=== PATIENT | female | born 1965 | race Caucasian/White ===

== ENCOUNTER 2020-09-27 13:18 | Day surgery (SDC) | payer OTHER ==
[2020-09-27] MEDS ORDERED: Sodium Chloride 0.9(Preservative Free) 10 ML IJ ONE (13:19)
[2020-09-27] MEDS ORDERED: BUPIVACAINE 0.5% VIAL IJ ONE (13:19)
[2020-09-27] MEDS ORDERED: Depo-Medrol 40 MG/ML IM ONE (13:19)
[2020-09-27] MEDS ORDERED: Ketamine HCl 50 MG/ML ONE (14:38)
[2020-09-27] MEDS ORDERED: DIPRIVAN 200 MG/20 ML IV ONE (14:38)
[2020-09-27] MEDS ORDERED: Lactated Ringers 1,000 ML IV ONE (16:17)
--- NOTE | 2020-09-27 16:18 | XRAY ---
Indication: Right L4-S1 transforaminal ALICE. Intraoperative fluoroscopy provided for 38 seconds. 5 digital spot images submitted for interpretation demonstrates posterior needle tips projecting over the expected right L4 and L5 nerve roots. Small amount of contrast injected for needle tip placement. Correlate with intraoperative findings/report.
--- NOTE | 2020-09-27 16:20 | XRAY ---
Indication: Right hip injection. Intraoperative fluoroscopy provided for 11 seconds. Single digital spot image obtained prone demonstrates needle tip projecting just lateral to the right femur head. Small amount of contrast injected for needle tip placement. Correlate with intraoperative findings/report.
--- NOTE | 2020-09-27 16:35 | XRAY ---
11 seconds fluoroscopy time in surgery for intra-articular injection of the right hip.
--- NOTE | 2020-09-27 16:45 | XRAY ---
38 seconds fluoroscopy time in surgery for right L4-S1 transforaminal ALICE.
== END 2020-09-27 15:10 | disposition home or self-care (01) ==
LOC: SDC-PAIN 13:18
PROVIDERS: ATTEND Psychiatry & Neurology Pain Medicine
DX: M16.11 Unilateral primary osteoarthritis, right hip (principal); M54.16 Radiculopathy, lumbar region; E16.2 Hypoglycemia, unspecified; K21.9 Gastro-esophageal reflux disease without esophagitis; M26.609 Unspecified temporomandibular joint disorder, unspecified side; Z79.899 Other long term (current) drug therapy
CPT/HCPCS: 20610; 64483; 64484; 72100; 73501; 77002; 77003; J1030; J2704; Q9966

== ENCOUNTER 2021-09-26 12:09 | Day surgery (SDC) | payer BC ==
[2021-09-26] MEDS ORDERED: Depo-Medrol 40 MG/ML IM ONE (15:15)
[2021-09-26] MEDS ORDERED: BUPIVACAINE 0.5% VIAL IJ ONE (15:15)
[2021-09-26] MEDS ORDERED: DIPRIVAN 200 MG/20 ML IV ONE (15:48)
[2021-09-26] MEDS ORDERED: Lactated Ringers 1,000 ML IV ONE (16:14)
--- NOTE | 2021-09-26 16:40 | XRAY ---
Indication: Bilateral hip injection. Intraoperative fluoroscopy provided for 25 seconds. 2 digital spot images submitted for interpretation demonstrates needle tip projecting lateral to the left and right femur neck. Small amount of contrast injected for both needle tip placement. Correlate with intraoperative findings/report.
--- NOTE | 2021-09-26 17:18 | XRAY ---
25 seconds of fluoroscopy was used in surgery for bilateral intra-articular hips injections.
== END 2021-09-26 16:15 | disposition home or self-care (01) ==
LOC: SDC-PAIN 12:09
PROVIDERS: ATTEND Psychiatry & Neurology Pain Medicine
DX: M16.0 Bilateral primary osteoarthritis of hip (principal); Z79.899 Other long term (current) drug therapy
CPT/HCPCS: 20610; 73521; 77002; J1030; J2704; Q9966

== ENCOUNTER 2021-10-24 10:06 | Day surgery (SDC) | payer BC ==
[2021-10-24] MEDS ORDERED: DIPRIVAN 200 MG/20 ML IV ONE (13:19)
[2021-10-24] MEDS ORDERED: Lactated Ringers 1,000 ML IV ONE (13:29)
--- NOTE | 2021-10-24 14:00 | XRAY ---
Indication: Right L4-S1 transforaminal ALICE. Intraoperative fluoroscopy provided for 20 seconds. 3 digital spot images submitted for interpretation demonstrate posterior needle tips projecting at expected right L4 and L5 nerve roots. Small amount of contrast injected for needle tip placement. Correlate with intraoperative findings/report.
--- NOTE | 2021-10-24 14:02 | XRAY ---
Indication: Right hip injection. Intraoperative fluoroscopy provided for 12 seconds. Single digital spot image obtained prone submitted for interpretation demonstrate needle tip projecting just lateral to the right femur neck. Small amount of contrast injected for needle tip placement. Correlate with intraoperative findings/report.
--- NOTE | 2021-10-24 14:07 | XRAY ---
20 seconds fluoroscopy time in surgery for right L4-S1 transforaminal ALICE.
--- NOTE | 2021-10-24 14:07 | XRAY ---
12 seconds fluoroscopy time in surgery for intra-articular injection of the right hip.
== END 2021-10-24 13:45 | disposition home or self-care (01) ==
LOC: SDC-PAIN 10:06
PROVIDERS: ATTEND Psychiatry & Neurology Pain Medicine
DX: M16.11 Unilateral primary osteoarthritis, right hip (principal); M54.16 Radiculopathy, lumbar region; Z79.899 Other long term (current) drug therapy
CPT/HCPCS: 72100; 73501; 77002; 77003; J2704

== ENCOUNTER 2022-03-13 08:14 | Day surgery (SDC) | payer BC ==
[2022-03-13] MEDS ORDERED: Sodium Chloride 0.9(Preservative Free) 10 ML IJ ONE (08:15)
[2022-03-13] MEDS ORDERED: Depo-Medrol 40 MG/ML IM ONE (08:15)
[2022-03-13] MEDS ORDERED: DIPRIVAN 200 MG/20 ML IV ONE (09:17)
[2022-03-13] MEDS ORDERED: Lactated Ringers 1,000 ML IV ONE (10:58)
--- NOTE | 2022-03-13 17:33 | XRAY ---
Indication: Left L3-L5 transforaminal ALICE. Intraoperative fluoroscopy provided for 32 seconds. 4 digital spot image submitted for interpretation demonstrates posterior needle tips projecting over the expected left L3 and L4 nerve roots. Small amount of contrast injected for needle tip placement. Correlate with intraoperative findings/report.
--- NOTE | 2022-03-13 17:45 | XRAY ---
32 seconds of fluoroscopy was used in surgery for a left L3-L5 transforaminal ALICE.
== END 2022-03-13 09:35 | disposition home or self-care (01) ==
LOC: SDC-PAIN 08:14
PROVIDERS: ATTEND Psychiatry & Neurology Pain Medicine
DX: M54.16 Radiculopathy, lumbar region (principal); Z79.899 Other long term (current) drug therapy
CPT/HCPCS: 64483; 64484; 72100; 77003; 82947; J1030; J2704; Q9966